=== PATIENT | female | born 1955 | race Caucasian/White ===

== ENCOUNTER → 2018-01-15 14:36 | Outpatient (CLI) | payer BC ==
[2010-02-17 07:02] VITALS: BMI 31.6
== END | disposition home or self-care (01) ==
LOC: D.CT 14:36
DX: R10.30 Lower abdominal pain, unspecified (principal)

== ENCOUNTER → 2018-02-05 08:31 | Outpatient (CLI) | payer BC ==
[2010-02-17 07:02] VITALS: BMI 31.6
[2018-02-05 09:16] LABS: BASOPHILS 0.6 % (0-2); EOSINOPHILS 3.5 % (0-7); HEMATOCRIT 39.2 % (36.0-48.0); HEMOGLOBIN 13.4 g/dL (12-16); IMMATURE GRANULOCYTES 0.2 % (0-5); LYMPHOCYTES 28.5 % (15-50); MCH 29.6 pg (26.0-34.0); MCHC 34.2 g/dL (31.0-37.0); MCV 86.7 fL (80.0-100.0); MEAN PLATELET VOLUME 9.5 fL (7.4-10.4); NEUTROPHILS 56.2 % (40-80); PLATELET COUNT 215 10x3/uL (130-400); RBC 4.52 10x6/uL (4.00-5.40); RDW 11.8 % (11.5-14.5); WBC 4.9 10x3/uL (4.8-10.8)
[2018-02-05 09:39] LABS: ALBUMIN 3.6 g/dL (3.4-5.0); ANION GAP 7.1 mmol/L (8-16); BILIRUBIN - TOTAL 0.46 mg/dL (0.2-1.3); CALCIUM 8.8 mg/dL (8.5-10.1); CARBON DIOXIDE 30.7 mmol/L (21.0-32.0); CREATININE - SERUM 1.1 mg/dL (0.6-1.3); POTASSIUM - SERUM 3.8 mmol/L (3.5-5.1); PROTEIN - SERUM 7.9 g/dL (6.4-8.2)
== END | disposition home or self-care (01) ==
LOC: D.US 08:30
PROVIDERS: Internal Medicine Gastroenterology
DX: K76.0 Fatty (change of) liver, not elsewhere classified (principal); R79.89 Other specified abnormal findings of blood chemistry

== ENCOUNTER 2020-11-05 14:07 | Inpatient (IN) | payer BC ==
[~2020-11-05] VITALS: Ht 165.1 cm; Wt 81.8 kg
[2020-11-05 14:55] LABS: LYMPHOCYTES 5.8 % (15-50)
[2020-11-05 15:03] LABS: CALC OSMOLALITY 271 mosm/kg (275-300); CARBON DIOXIDE 31.7 mmol/L (21.0-32.0); CHLORIDE - SERUM 95 mmol/L (98-107); CREATININE - SERUM 1.6 mg/dL (0.6-1.3); GLUCOSE 172 mg/dL (74-106); POTASSIUM - SERUM 3.5 mmol/L (3.5-5.1); SODIUM 132 mmol/L (136-145); UREA NITROGEN 21 mg/dL (7-18); eGFR NON AFRICAN AMERICAN 34 mL/min (90-120)
[2020-11-05] MEDS ORDERED: RYTHMOL SR325 MG PO (15:03)
[2020-11-05] MEDS ORDERED: BENTYL10 MG PO (15:04)
[2020-11-05] MEDS ORDERED: LISINOPRIL-HCT1 EAC7 PO (15:04)
[2020-11-05] MEDS ORDERED: PROTONIX40 MG PO (15:05)
[2020-11-05] MEDS ORDERED: TRAZODONE HCL50 MG PO (15:05)
[2020-11-05] MEDS ORDERED: VITAMIN D325 MC1 PO (15:07)
[2020-11-05] MEDS ORDERED: CLONIDINE HCL0.1 MG PO (15:10)
[2020-11-05 15:11] LABS: ALKALINE PHOSPHATASE 107 U/L (30-120); ALT (SGPT) 32 U/L (10-68); AMYLASE - SERUM 78 U/L (25-115); LIPASE 161 U/L (73-393); PROTEIN - SERUM 7.7 g/dL (6.4-8.2)
[2020-11-05] MEDS ORDERED: LEVOXYL25 MCG PO (15:11)
[2020-11-05] MEDS ORDERED: BUPROPION XL150 MG PO (15:13)
[2020-11-05 15:15] LABS: TROPONIN-I < 0.017 ng/mL (0.000-0.060)
[2020-11-05 15:27] LABS: BASOPHILS 0.2 % (0-2); EOSINOPHILS 0.3 % (0-7); HEMATOCRIT 46.4 % (36.0-48.0); HEMOGLOBIN 15.4 g/dL (12-16); MCH 27.9 pg (26.0-34.0); MCHC 33.1 g/dL (31.0-37.0); MCV 84.3 fL (80.0-100.0); MEAN PLATELET VOLUME 8.2 fL (7.4-10.4); MONOCYTES 6.7 % (2-11); RBC 5.51 10x6/uL (4.00-5.40); RDW 12.8 % (11.5-14.5); WBC 19.2 10x3/uL (4.8-10.8)
[2020-11-05 15:28] LABS: PLATELET COUNT 336 10x3/uL (130-400)
[2020-11-05 15:56] LABS: BILIRUBIN NEGATIVE (NEGATIVE); KETONE NEGATIVE (NEGATIVE); NITRITE POSITIVE (NEGATIVE); UROBILINOGEN NORMAL mg/dL (< 2)
[2020-11-05 15:58] LABS: BACTERIA MODERATE HPF (NONE SEEN); SQUAMOUS EPITHELIAL NONE SEEN HPF (0-4)
[2020-11-05 18:48] VITALS: BP 167/82
--- NOTE | 2020-11-05 19:04 | NUR ---
REPORT GIVEN TO ALLY GREEN
--- NOTE | 2020-11-05 19:46 | NUR ---
PT ARRIVED ON UNIT VIA STRETCHER, ESCORTED BY ER STAFF AND SPOUSE. TRANSFERRED TO BED AND POSITIONED FOR COMFORT. ORIENTED TO ROOM AND CALL LIGHT. IV TO RIGHT AC PATENT WITH NS INFUSING AT 125 ML/HR. WILL MONITOR FOR NEEDS.
[2020-11-05 20:00] VITALS: BP 144/74
--- NOTE | 2020-11-05 21:23 | NUR ---
BLADDER SCANNED PT PER ORDER. LESS THAN 100 ML RESULTED. PT STATES THAT SHE DOES NOT FEEL DISTENDED OR HAVE THE URGE TO URINATE AT THIS TIME. WILL MONITOR CLOSELY.
[2020-11-05] MEDS ORDERED: CIPRO500 MG PO (22:09)
[2020-11-05] MEDS ORDERED: FLAGYL500 MG PO (22:10)
[2020-11-05 22:51] VITALS: BP 144/74; Ht 165.1 cm; Wt 81.8 kg
--- NOTE | 2020-11-05 23:29 | NUR ---
ADMISSION ASSESSMENT AND HISTORY COMPLETE.
[2020-11-06] VITALS: BP 130/64
[2020-11-06 04:00] VITALS: BP 108/65
[2020-11-06 06:18] LABS: BASOPHILS 0.7 % (0-2); EOSINOPHILS 1.3 % (0-7); HEMOGLOBIN 12.4 g/dL (12-16); LYMPHOCYTES 21.6 % (15-50); MCH 28.1 pg (26.0-34.0); MCHC 33.4 g/dL (31.0-37.0); MCV 84.1 fL (80.0-100.0); NEUTROPHILS 67.4 % (40-80); RBC 4.41 10x6/uL (4.00-5.40); RDW 12.8 % (11.5-14.5)
[2020-11-06 06:38] LABS: ALBUMIN 3.1 g/dL (3.4-5.0); ANION GAP 8.8 mmol/L (8-16); BILIRUBIN - TOTAL 0.51 mg/dL (0.2-1.3); CALCIUM 8.1 mg/dL (8.5-10.1); CARBON DIOXIDE 27.6 mmol/L (21.0-32.0); MAGNESIUM - SERUM 1.8 mg/dL (1.8-2.4); PHOSPHOROUS 3.4 mg/dL (2.5-4.9); POTASSIUM - SERUM 3.4 mmol/L (3.5-5.1); PROTEIN - SERUM 6.2 g/dL (6.4-8.2)
[2020-11-06 06:40] LABS: CREATININE - SERUM 1.1 mg/dL (0.6-1.3)
[2020-11-06 06:45] LABS: HEMATOCRIT 37.1 % (36.0-48.0); PLATELET COUNT 225 10x3/uL (130-400); WBC 4.7 10x3/uL (4.8-10.8)
[2020-11-06 12:04] VITALS: BP 128/65
[2020-11-06 12:30] LABS: CKMB 0.6 U/L (0.0-3.6); CREATINE KINASE 59 UL (21-215); TROPONIN-I < 0.017 ng/mL (0.000-0.060)
[2020-11-06 17:32] VITALS: BP 131/71
[2020-11-06 17:46] LABS: CKMB 0.9 U/L (0.0-3.6); CREATINE KINASE 65 UL (21-215)
[2020-11-06 17:48] LABS: TROPONIN-I < 0.017 ng/mL (0.000-0.060)
[2020-11-06 18:24] VITALS: BP 131/71
[2020-11-06 18:25] VITALS: BP 140/67; BP 143/72
--- NOTE | 2020-11-06 19:00 | NUR ---
BEDSIDE REPORT RECEIVED AND CARE OF PT ASSUMED. PT LYING IN LOW ZAPATA'S POSITION WATCHING TV. IV TO RIGHT AC PATENT WITH NS INFUSING AT 125 ML/HR, AND ZOFRAN AT 4.7 ML/HR. WILL MONITOR FOR NEEDS.
--- NOTE | 2020-11-06 19:21 | NUR ---
GAVE TYLENOL AND COLA FOR C/O HEADACHE.
--- NOTE | 2020-11-06 20:34 | NUR ---
HS MEDICATIONS GIVEN TO INCLUDE TRAZADON PER REQUEST, PER PRN ORDER.
--- NOTE | 2020-11-06 20:34 | NUR ---
BS 109 THIS CHECK, REQUIRING NO COVERAGE PER SLIDING SCALE.
--- NOTE | 2020-11-06 23:00 | NUR ---
COLLECTED URINE FOR ORDERED STUDIES AND DELIVERED TO LAB.
[2020-11-06 23:57] LABS: CREATINE KINASE 76 UL (21-215)
[2020-11-07] LABS: TROPONIN-I < 0.017 ng/mL (0.000-0.060)
[2020-11-07 04:00] VITALS: BP 130/78
[2020-11-07 06:28] LABS: BASOPHILS 1.3 % (0-2); EOSINOPHILS 4.5 % (0-7); HEMATOCRIT 33.2 % (36.0-48.0); HEMOGLOBIN 11.2 g/dL (12-16); LYMPHOCYTES 35.7 % (15-50); MCH 28.5 pg (26.0-34.0); MCHC 33.8 g/dL (31.0-37.0); MCV 84.4 fL (80.0-100.0); MEAN PLATELET VOLUME 8.2 fL (7.4-10.4); MONOCYTES 10.2 % (2-11); NEUTROPHILS 48.3 % (40-80); PLATELET COUNT 180 10x3/uL (130-400); RBC 3.93 10x6/uL (4.00-5.40); RDW 12.8 % (11.5-14.5)
[2020-11-07 06:32] LABS: WBC 3.2 10x3/uL (4.8-10.8)
[2020-11-07 06:40] LABS: ANION GAP 10.1 mmol/L (8-16); CARBON DIOXIDE 25.1 mmol/L (21.0-32.0); CREATININE - SERUM 1.1 mg/dL (0.6-1.3); MAGNESIUM - SERUM 1.6 mg/dL (1.8-2.4); PHOSPHOROUS 2.7 mg/dL (2.5-4.9); POTASSIUM - SERUM 3.2 mmol/L (3.5-5.1)
--- NOTE | 2020-11-07 08:03 | NUR ---
AWAKE AND ALERT. ORIENTED X3. AT BEDSIDE. LUNGS ARE CLEAR BILATERALLY, NO COUGH NOTED. SKIN IS INTACT WITHOUT REDNESS. IV TO RIGHT AC IS PATENT WITHOUT REDNESS AT INSERTION SITE. C/O SOME NAUSEA AT THIS TIME. WILL MONITOR.
[2020-11-07 08:51] VITALS: BP 138/60
--- NOTE | 2020-11-07 09:00 | NUR ---
ATE ALMOST ALL OF CL BREAKFAST WITHOUT INCREASED NAUSEA. TOOK AM MEDS WITHOUT DIFFICULTY. DENIES NEEDS.
--- NOTE | 2020-11-07 11:00 | NUR ---
RESTING QUIETLY IN BED. AT BEDSIDE.
--- NOTE | 2020-11-07 11:16 | NUR ---
PATIENT WALKED 250 FEET INDEPENDENTLY IN MAYERS WITHOUT ASST DEVICE.
--- NOTE | 2020-11-07 12:30 | NUR ---
CL TRAY SERVED IN ROOM. ATE MOST OF MEAL.
[2020-11-07 12:37] VITALS: BP 131/85
--- NOTE | 2020-11-07 13:30 | NUR ---
DR. WHITLOCK HERE. NEW ORDERS RECEIVED. SOUP ORDERED FOR PATIENT. RAMIN TO EAT ABOUT HALF THE BROTH AND THEN STARTED WITH DIARRHEA. NO NAUSEA WITH SOUP. WILL MONITOR.
[2020-11-07 18:03] VITALS: BP 126/58
--- NOTE | 2020-11-07 19:00 | NUR ---
BEDSIDE REPORT RECEIVED AND CARE OF PT ASSUMED. PT LYING IN SUPINE POSITION WATCHING TV. IV TO RIGHT AC PATENT WITH NS INFUSING AT 125 ML/HR. TELEMETRY IN PLACE AND READING SR AT THIS ASSESSMENT. WILL MONITOR FOR NEEDS.
[2020-11-07 19:47] VITALS: BP 144/51
--- NOTE | 2020-11-07 20:09 | NUR ---
HS MEDICATIONS GIVEN TO INCLUDE TRAZADONE PER REQUEST FOR SLEEP, PER PRN ORDER. WILL CONTINUE TO MONITOR FOR NEEDS.
[2020-11-08 04:30] VITALS: BP 125/68
--- NOTE | 2020-11-08 06:24 | NUR ---
GAVE TYLENOL 650 MG PO FOR C/O HEADACHE.
[2020-11-08 07:14] LABS: BASOPHILS 0.8 % (0-2); EOSINOPHILS 3.6 % (0-7); HEMATOCRIT 34.5 % (36.0-48.0); HEMOGLOBIN 11.6 g/dL (12-16); LYMPHOCYTES 23.9 % (15-50); MCH 28.4 pg (26.0-34.0); MCHC 33.6 g/dL (31.0-37.0); MCV 84.4 fL (80.0-100.0); MEAN PLATELET VOLUME 7.5 fL (7.4-10.4); NEUTROPHILS 61.7 % (40-80); PLATELET COUNT 190 10x3/uL (130-400); RBC 4.09 10x6/uL (4.00-5.40); RDW 12.7 % (11.5-14.5); WBC 3.2 10x3/uL (4.8-10.8)
[2020-11-08 07:20] LABS: ANION GAP 11.4 mmol/L (8-16); CALCIUM 8.1 mg/dL (8.5-10.1); CARBON DIOXIDE 25.1 mmol/L (21.0-32.0); CREATININE - SERUM 1.1 mg/dL (0.6-1.3); MAGNESIUM - SERUM 1.5 mg/dL (1.8-2.4); PHOSPHOROUS 2.8 mg/dL (2.5-4.9); POTASSIUM - SERUM 3.5 mmol/L (3.5-5.1)
--- NOTE | 2020-11-08 07:48 | NUR ---
AWAKE AND ALERT. ORIENTED X3. NO C/O AT THIS TIME. LUNGS ARE CLEAR BILATERALLY, NO COUGH NOTED. SKIN IS INTACT WITHOUT REDNESS. IV TO RIGHT AC IS PATENT WITHOUT REDNESS AT INSERTION SITE. DENIES NEEDS.
[2020-11-08 08:56] VITALS: BP 132/64
--- NOTE | 2020-11-08 09:00 | NUR ---
ATE A FEW BITES OF BREAKFAST AND HAD SMALL AMOUNT OF LOOSE WATERY DIARRHEA. TOOK AM MEDS WITHOUT DIFFICULTY.
[2020-11-08] MEDS ORDERED: FLAGYL500 MG PO (10:09)
[2020-11-08] MEDS ORDERED: LEVAQUIN750 MG PO (10:09)
--- NOTE | 2020-11-08 11:30 | NUR ---
FSBS 110. NO COVERAGE REQUIRED. IV TO RIGHT AC D/C WITH CATHETER INTACT.
--- NOTE | 2020-11-08 11:53 | MORECARE ---
CASE MANAGEMENT DISCHARGE SUMMARY PATIENT: BRITTNEE ZARAGOZA UNIT: [id number] ADM DATE: 11/06/20 AGE: 64 : 57 SEX: F ROOM/BED: D.[facility]5 AUTHOR: LYN,DOC PHYSICIAN: REFERRING PHYSICIAN: KACEY COX MD DATE OF SERVICE: 11/08/20 Case Management Discharge Planning Summary COMMENTS ENTERED DATE: 11/08/20 11:51 CT COMMENT TYPE: Discharge Planning REVIEWER: Fany Riley PER FLOW COORD. PATIENT DENIES ANY NEEDS TO TDC HOME TODAY. SHE FEELS SAFE GOING HOME AND WOULD LIKE TO DC HOME TODAY DCP REVIEW SUMMARY ANTICIPATED D/C DATE: EXPECTED LOS : CASE STATUS: DCP Initiated INITIAL REVIEW: 11/05/2020 INITIAL REVIEWER: Fany Riley FINAL DISCHARGE DISPOSITION: : FINAL REVIEWER: FINAL REVIEW DATE: DCP Focus Questions & Answers QUESTION: ANSWER : PATIENT: BRITTNEE ZARAGOZA ENCOUNTER: [id number] MEDICAL RECORD#: [id number] ADMISSION DATE: 11/06/2020 DISCHARGE DATE: ATTENDING MD: KACEY LARA : AGE: 64 MARITAL STATUS: M DC PLAN ID: [id number] FACILITY: [facility] PRINTED ON: 11/08/20 11:53 CT All edits/amendments must be made on the electronic document DICTATION DATE: 11/08/201151 CORDUROY CUTTING SUPERVISOR: TANO 11/08/20 1152 RPT#: [id number] DC DATE: STATUS: ADM IN [facility] [address] [place] [address] END OF REPORT
[2020-11-08 11:59] VITALS: BP 138/75
--- NOTE | 2020-11-08 12:20 | NUR ---
DISCHARGED TO HOME AMBULATORY WITH FAMILY. DISCHARGE INSTRUCTIONS GIVEN BOTH VERBALLY AND WRITTEN. ALL QUESTIONS ANSWERED. PATIENT AND VERBALIZED UNDERSTANDING OF SAME. NO NEW PRESCRIPTIONS NEEDED. ALL BELONGINGS WITH PATIENT.
--- NOTE | 2020-11-08 13:12 | MORECARE ---
CASE MANAGEMENT DISCHARGE SUMMARY PATIENT: BRITTNEE ZARAGOZA UNIT: [id number] ADM DATE: 11/06/20 AGE: 64 : 57 SEX: F ROOM/BED: D.[facility]5 AUTHOR: LYN,DOC PHYSICIAN: REFERRING PHYSICIAN: KACEY COX MD DATE OF SERVICE: 11/08/20 Case Management Discharge Planning Summary COMMENTS ENTERED DATE: 11/08/20 11:51 CT COMMENT TYPE: Discharge Planning REVIEWER: Fany Riley PER FLOW COORD. PATIENT DENIES ANY NEEDS TO TDC HOME TODAY. SHE FEELS SAFE GOING HOME AND WOULD LIKE TO DC HOME TODAY DCP REVIEW SUMMARY ANTICIPATED D/C DATE: EXPECTED LOS : CASE STATUS: DCP Initiated INITIAL REVIEW: 11/05/2020 INITIAL REVIEWER: Fany Riley FINAL DISCHARGE DISPOSITION: : FINAL REVIEWER: FINAL REVIEW DATE: DCP Focus Questions & Answers QUESTION: ANSWER : PATIENT: BRITTNEE ZARAGOZA ENCOUNTER: [id number] MEDICAL RECORD#: [id number] ADMISSION DATE: 11/06/2020 DISCHARGE DATE: 11/08/2020 ATTENDING MD: KACEY LARA : AGE: 64 MARITAL STATUS: M DC PLAN ID: [id number] FACILITY: [facility] PRINTED ON: 11/08/20 13:12 CT All edits/amendments must be made on the electronic document DICTATION DATE: 11/08/20 131 WILLOW MACHINE TENDER: TANO 11/08/20 1311 RPT#: [id number] DC DATE:11/08/20 STATUS: DIS IN [facility] [address] [place] [address] END OF REPORT
--- NOTE | 2020-11-09 14:27 | CN ---
PATIENT NAME:BRITTNEE ZARAGOZA MEDICAL RECORD: [id number] : 57 LOCATION:[facility] ADMIT DATE: 11/06/20 ACCOUNT: [id number] CONSULTING PHYSICIAN: CELE HAIR MD REFERRING PHYSICIAN: KACEY COX MD DATE OF CONSULTATION: 11/07/2020 HISTORY OF PRESENT ILLNESS: A 64-year-old female with a history of atrial fibrillation, typically followed by Dr. Hall, hypertension, irritable bowel syndrome, admitted with irritable bowel syndrome, colitis, syncope. She has had 3 episodes of syncope by her report, typically happens when having stomach cramping. She becomes quite diaphoretic, nauseated and has mook syncope, certainly suspicious for vagal episode from her GI distress. She has had rheumatogenic type symptomatology. We were asked to see her concerning her cardiovascular status. PAST MEDICAL HISTORY: Includes history of; 1. Irritable bowel syndrome. 2. Hypertension. 3. Atrial fibrillation. 4. Anxiety. 5. Hypothyroidism, on replacement. 6. Gastroesophageal reflux disease. MEDICATIONS: Include Synthroid 25 mcg daily, Protonix 40 daily, Wellbutrin 150 mg t.i.d., trazodone 50 at bedtime, lisinopril/hydrochlorothiazide 20/25 daily, propafenone 325 q.12. SOCIAL HISTORY: Nonsmoker, nondrinker. Easily takes care of all her ADLs. Does try to walk on a regular basis. FAMILY HISTORY: No real family history of coronary artery disease. REVIEW OF SYSTEMS: The patient reports easy bruising but reports no swollen glands. The patient reports no fever, no night sweats, no significant weight gain, no significant weight loss. No significant exercise tolerance. The patient reports no dry eyes, no irritation, no vision change. Patient reports no difficulty hearing and no ear pain. Patient reports no frequent nose bleeds or nose and sinus problems. Patient reports on arm pain on exertion. No shortness of breath while lying down. No history of heart murmur. Patient reports no cough, no wheezing or coughing up blood. Patient reports no abdominal pain, no vomiting. Normal appetite. No diarrhea and not vomiting blood. No nausea and no constipation. Patient reports no incontinence. No difficulty urinating. No hematuria. No increased frequency. Patient reports no muscle aches. No weakness, no arthralgias, no back pain. No swelling of the extremities. Patient reports no abnormal mole, no jaundice, no rashes. Reports no loss of consciousness. No weakness and no numbness. No seizures, dizziness, or headaches. The patient reports no depression, no sleep disturbance, feeling safe in a relationship and no alcohol abuse. Patient reports on fatigue. Reports no runny nose or sinus pressure. No itching, no hives, and no frequent sneezing. PHYSICAL EXAMINATION: GENERAL: Pleasant. No acute distress, appears stated age. Alert and oriented times 3. CONSULT REPORT [id number] BRITTNEE ZARAGOZA VITAL SIGNS: 138/60, pulse 75 and regular. HEENT: Normocephalic, atraumatic. NECK: No bruits noted. HEART: Regular. LUNGS: Good air excursion. ABDOMEN: Soft and nontender. EXTREMITIES: Pulses 2+. No edema. NEUROLOGIC: Grossly intact. DIAGNOSTIC STUDIES: EKG shows incomplete right bundle, nonspecific ST-T changes. IMPRESSION: Syncope, atrial fibrillation. Suspect her syncope is more vagal mediated particularly in view of intravascular volume depletion, does not sound like a true sick sinus syndrome with AV dissociation or pauses. Continue to monitor. Agree with hydration. Other measures as you are doing. Echocardiographic study has been ordered. Further recommendation based on the above. TRANSINT:[id number] Voice Confirmation ID: [id number] DOCUMENT ID: [id number] CELE HAIR MD at 1427 CC: [id number] DICTATION DATE: 11/07/2046 VEST TAILOR: 11/07/20 1123 DIS IN 11/08/20 [id number] [place] [address]
--- NOTE | 2020-11-09 14:27 | EC ---
PATIENT:BRITTNEE ZARAGOZA DATE OF SERVICE: 11/06/20 SEX: F MEDICAL RECORD: [id number] DATE OF : 57 LOCATION:[facility] AGE OF PATIENT: 64 ADMISSION DATE: 11/06/20 REFERRING PHYSICIAN: INTERPRETING PHYSICIAN: CELE HARI MD ECHOCARDIOGRAM REPORT ECHO CHARGES 4 ECHO COMPLETE Date: 11/07/20 CLINICAL DIAGNOSIS: ATRIAL FIB/SYNCOPE ECHOCARDIOGRAPHIC MEASUREMENTS (adult normal given) AC root (d.<3.7cm) 3.5 cm LV Septum d (<1.2 cm> 1.5 cm Valve Excursion 1.7 cm LV Septum (systole) 1.7 cm Left Atria (s.<4.0cm> 3.8 cm LVPW d(<1.2cm) 1.4 cm RV (d.<2.3cm) 4.1 cm LVPW (sytole) 1.9 cm LV diastole(<5.6CM) 4.6 cm MV E-F(>70mm/sec) cm LV systole 3.1 cm LVOT Diameter 1.8 cm MV exc.(>10mm) 1.5 cm Est.ejection fraction (50-75%) % DOPPLER: LVIT cm/sec A 102.0cm/sec E 74.0 cm/sec LA cm/sec RVSP 35 mmHg LVOT 98 cm/sec AOP1/2T m/s Asc. Ao 127 cm/sec RVOT 69 cm/sec RA cm/sec PA 102 cm/sec AV Gradient Peak 6.42 mmHg AV Mean 3.21 mmHg AV Area 2.4 cm MV Gradient Peak 5.94 mmHg MV Mean 2.78 mmHg MV Area cm COMMENTS: Tractor Mechanic Apprentice: 2 TO ARMANDO Script Writer: 3 Dr. Stewart TAPE# PACS Pericardial Effusion N DATE OF SERVICE: Adequate 2D, color flow imaging, spectral Doppler, and M-Mode. FINDINGS: LVH is present. LV internal dimensions are normal. Wall motion is normal. EF is greater than or equal to 55%. Aortic valve is tricuspid. No evidence of stenosis by Doppler interrogation. Left atrium is normal. Mitral valve shows no prolapse. Trace MR. Right side is grossly normal. Mild TR. TRANSINT:[id number] Voice Confirmation ID: [id number] DOCUMENT ID: [id number] ECHOCARDIOGRAM REPORT [id number] BRITTNEE ZARAGOZA GREGORY A MD at 1427 CC: [id number] DICTATION DATE: 11/08/20 1132 DIESEL LOCOMOTIVE FIRER: 11/08/20 1334 DIS IN 11/08/20 [facility] [address] [place] [place] [id number]
--- NOTE | 2020-11-09 14:59 | MORECARE ---
CASE MANAGEMENT DISCHARGE SUMMARY PATIENT: BRITTNEE ZARAGOZA UNIT: [id number] ADM DATE: 11/06/20 AGE: 64 : 57 SEX: F ROOM/BED: D.[facility]5 AUTHOR: LYN,DOC PHYSICIAN: REFERRING PHYSICIAN: KACEY COX MD DATE OF SERVICE: 11/09/20 Case Management Discharge Planning Summary COMMENTS ENTERED DATE: 11/08/20 11:51 CT COMMENT TYPE: Discharge Planning REVIEWER: Fany Riley PER FLOW COORD. PATIENT DENIES ANY NEEDS TO TDC HOME TODAY. SHE FEELS SAFE GOING HOME AND WOULD LIKE TO DC HOME TODAY DCP REVIEW SUMMARY ANTICIPATED D/C DATE: EXPECTED LOS : CASE STATUS: DCP Initiated INITIAL REVIEW: 11/05/2020 INITIAL REVIEWER: Fany Riley FINAL DISCHARGE DISPOSITION: : FINAL REVIEWER: FINAL REVIEW DATE: DCP Focus Questions & Answers QUESTION: ANSWER : PATIENT: BRITTNEE ZARAGOZA ENCOUNTER: [id number] MEDICAL RECORD#: [id number] ADMISSION DATE: 11/06/2020 DISCHARGE DATE: 11/08/2020 ATTENDING MD: KACEY LARA : AGE: 64 MARITAL STATUS: M DC PLAN ID: [id number] FACILITY: [facility] PRINTED ON: 11/09/20 14:59 CT All edits/amendments must be made on the electronic document DICTATION DATE: 11/09/20 1459 GAMES DEALER: TANO 11/09/20 1459 RPT#: [id number] DC DATE:11/08/20 STATUS: DIS IN [facility] [address] [place] [address] END OF REPORT
== END 2020-11-08 12:20 | disposition home or self-care (01) | DRG 392 ==
LOC: D.ER 14:07 → D.MS 18:36 → OBSVTIME 18:36 → D.MS 11-06 23:03
PROVIDERS: Family Medicine; ADMIT Family Medicine; ATTEND Family Medicine
DX: K52.9 Noninfective gastroenteritis and colitis, unspecified (principal); N39.0 Urinary tract infection, site not specified; N17.9 Acute kidney failure, unspecified; E87.1 Hypo-osmolality and hyponatremia; I48.20 Chronic atrial fibrillation, unspecified; R55 Syncope and collapse; E11.65 Type 2 diabetes mellitus with hyperglycemia; E86.0 Dehydration; I86.4 Gastric varices; I86.8 Varicose veins of other specified sites; N28.1 Cyst of kidney, acquired; J44.9 Chronic obstructive pulmonary disease, unspecified; G47.33 Obstructive sleep apnea (adult) (pediatric); F32.9 Major depressive disorder, single episode, unspecified; I10 Essential (primary) hypertension; E03.9 Hypothyroidism, unspecified; K21.9 Gastro-esophageal reflux disease without esophagitis